=== PATIENT | female | born 1950 | race Caucasian/White ===

== ENCOUNTER → 2017-04-26 | Day surgery (SDC) | payer BC ==
[~2017-04-26] MED LIST: ALLERGY SHOTS SUBQ; BRIMONIDINE5 ML OU; CALCIUM 600 +1 EAC1 PO; CALCIUM500 M1; FISH OIL 1,2001 CAP PO; FISH OIL PEARL PO; FRESHKOTE15 ML OU; HYZAAR PO; LOSARTAN-HCTZ1 EAC1 PO; MACULAR VITAMI1 EACH PO; MULTIPLE VITAMI1 T11 PO; MULTIVITAMINS1 EAC3; OMEPRAZOLE20 M2 PO; TUMERIC; VITAMIN D250000 UNIT PO
--- NOTE | ~2017-04-26 | OR ---
Unit #: [id number] #: [id number] Patient: PATRICK SAINZ [id number] [address] [id number] [id number] MR#: [id number] NAME: PATRICK SAINZ. ROOM: Date of Procedure: 04/26/2017 Admission Date: 04/26/2017 Surgeon: Ronald Villaseñor III, M.D. : 1950 Attending Physician: Ronald Villaseñor III, M.D. Primary Care Physician: Jie Camacho M.D. OPERATIVE REPORT PREOPERATIVE DIAGNOSES 1. Left labial abscess. 2. Right groin sebaceous cyst and chronically infected right mid back sebaceous cyst. POSTOPERATIVE DIAGNOSES 1. Left labial abscess. 2. Right groin sebaceous cyst and chronically infected right mid back sebaceous cyst. PROCEDURES PERFORMED 1. Incision and drainage of left labial abscess. 2. Excision of right groin cyst that measures 1 cm in diameter and excision of chronically infected right mid back cyst measuring 1 cm in diameter. ANESTHESIA General. SPECIMEN Cultures sent to Microbiology and tissue sent to Pathology. COMPLICATIONS None apparent. INDICATIONS FOR PROCEDURE This is a 66-year-old lady, who presented to my office with primary complaint of left labial abscess. She also had a cyst that was chronically inflamed on the right mid back area. On the morning of surgery, she also had a cyst popped up in the right groin. DESCRIPTION OF PROCEDURE After consent was obtained, the patient was brought to the operating room and placed in the supine position. General anesthetic was administered and she was then placed comfortably in the frog-leg position. Her right groin and left labial region was prepped and draped in standard surgical fashion. I started with the right groin cyst. I made an elliptical incision around this. This was measured approximately 1 cm in diameter. I dissected down and removed the cyst entirely including the surrounding tissue. I had good hemostasis and I closed the deep layer with an interrupted 3-0 Vicryl suture and the skin edges were reapproximated with a running 4-0 Vicryl subcuticular suture. Steri-Strips were then applied. Unit #: [id number] #: [id number] Patient: PATRICK SAINZ I then turned my attention to the left labial abscess. I made an opening about size of a nickel. There was a purulent pocket, which cultures were obtained. I then achieved good hemostasis and I broke up all the loculated areas. I then packed the wound with normal saline Kerlix gauze. We then repositioned the patient and placed her in the left lateral decubitus position with the right side up. We prepped and draped the area in the right mid back in standard surgical fashion. I made elliptical incision around the area and I tried to stay completely outside of where the chronically infected area was, however, there was one wall of the cyst that was violated. I then tried to debride this back to viable normal to healthy tissue. I then irrigated the wound copiously. I achieved good hemostasis and I closed the deep wound with interrupted 3-0 Vicryl suture and the skin edges were reapproximated with interrupted 4-0 Vicryl subcuticular suture. Steri-Strips were then applied. The patient tolerated the procedure without any problems and returned to the recovery room in stable condition. Dictated by... Ronald Villaseñor III, M.D. VCL/pavan TD: 04/27/2017 07:19 JOB #: [id number] OPERATIVE REPORT Page 1 of 1 X Ronald Villaseñor III, MD PROCEDURE OPERATIVE NOTE
--- NOTE | ~2017-04-26 | EKG ---
PATIENT: PATRICK SAINZ UNIT #: [id number] Ventricular Rate: 58 BPM Atrial Rate: 58 BPM P-R Interval: 190 ms QRS Duration: 112 ms Q-T Interval: 458 ms QTC Calculation(Bezet): 449 ms P [place]: 61 degrees Calculated R [place]: 54 degrees Calculated T [place]: 63 degrees Diagnosis Line: Sinus bradycardia Diagnosis Line: Normal ECG Diagnosis Line: No previous ECGs available Diagnosis Line: Confirmed by VLAD SHELTON MD ([id number]) on 04/27/2017 Diagnosis Line: 6:29:32 PM INTERPRETING MD: NIKITA MARTINEZ
[2017-04-26 08:37] LABS: BUN/CREATININE RATIO 21.42; CALCIUM SERUM 9.3 mg/dL (8.4-10.2); CREATININE SERUM 0.7 mg/dL (0.6-1.4); GLOM FILT RATE Estimated 90.3 mL/min (>60); POTASSIUM 3.6 mmol/L (3.5-5.1)
== END | disposition home or self-care (01) ==
LOC: CSUR 06:00
PROVIDERS: Surgery
DX: L72.0 Epidermal cyst (principal); N90.4 Leukoplakia of vulva; M17.11 Unilateral primary osteoarthritis, right knee; I10 Essential (primary) hypertension; K21.9 Gastro-esophageal reflux disease without esophagitis; Z87.01 Personal history of pneumonia (recurrent); Z87.442 Personal history of urinary calculi; Z88.2 Allergy status to sulfonamides; Z88.1 Allergy status to other antibiotic agents; Z79.899 Other long term (current) drug therapy; Z90.49 Acquired absence of other specified parts of digestive tract; Z98.51 Tubal ligation status; Z90.710 Acquired absence of both cervix and uterus; Z98.890 Other specified postprocedural states
CPT/HCPCS: 80048; 87070; 87075; 87205; 88304; 93005; J0131; J2250; J2370; J2405; J3010; J3370